=== PATIENT | female | born 1970 | race African-American/Black ===

== ENCOUNTER 2022-11-13 07:41 | Emergency (ER) | payer MEDICAID ==
[~2022-11-13] VITALS: Ht 170.2 cm; Wt 79.4 kg
[2022-11-13 07:49] VITALS: O2SAT 99
[2022-11-13 08:33] LABS: BASOPHILS % 0.4 % (0.0-2.0); EOSINOPHILS % 1.2 % (0.0-5.0); HEMATOCRIT. 38.8 % (36.0-48.0); HEMOGLOBIN. 12.8 g/dL (12.0-16.0); LYMPHOCYTES % 44.1 % (20.0-50.0); MEAN CORPUSCULAR HEMOGLOBIN 26.2 pg (28.0-32.0); MEAN CORPUSCULAR VOLUME 79.2 fL (81.0-99.0); MEAN PLATELET VOLUME 8.4 fl (7.4-10.4); MONOCYTES % 9.6 % (2.0-8.0); NEUTROPHILS % 44.7 % (40.0-76.0); PLATELET 228 x1000/uL (130-400)
[2022-11-13 08:40] LABS: CHLORIDE 107 mEq/L (98-107)
[2022-11-13] MEDS ORDERED: IBUPROFEN 600MG TABLET PO ONE (08:45)
[2022-11-13 09:56] VITALS: BP 136/88; PULSE 87; RESP 17; TEMP 97.5
== END 2022-11-13 09:58 | disposition home or self-care (01) ==
LOC: ER 07:41
DX: R07.89 Other chest pain (principal); E11.9 Type 2 diabetes mellitus without complications; Z90.710 Acquired absence of both cervix and uterus
CPT/HCPCS: 36415; 71045; 80053; 84484; 85025; 93005; 99285

== ENCOUNTER 2023-05-24 05:45 | Emergency (ER) | payer MEDICAID ==
[~2023-05-24] VITALS: Ht 170.2 cm; Wt 77.0 kg
[2023-05-24 06:02] VITALS: O2SAT 97
[2023-05-24] MEDS ORDERED: ACETAMINOPHEN 325MG TABLET PO ONE (07:00)
[2023-05-24] MEDS ORDERED: KETOROLAC 15MG/ML VIAL IM ONE (08:00)
[2023-05-24] MEDS ORDERED: ONDANSETRON 4MG ODT PO ONE (08:00)
[2023-05-24] MEDS ORDERED: NAPR-681 MT (11:30)
[2023-05-24 12:09] VITALS: BP 116/82; PULSE 86; RESP 17; TEMP 98.5
== END 2023-05-24 12:10 | disposition home or self-care (01) ==
LOC: ER 05:45
DX: R51.9 Headache, unspecified (principal); E11.9 Type 2 diabetes mellitus without complications; Z20.822 Contact with and (suspected) exposure to COVID-19; Z88.0 Allergy status to penicillin
CPT/HCPCS: 70450; 96372; 99285; 87426; Q0162; J1885; C9803; Z7610